=== PATIENT | male | born 1980 | race Caucasian/White ===

== ENCOUNTER → 2019-04-14 12:59 | Outpatient (CLI) | payer OTHER, SELFPAY ==
--- NOTE | 2019-04-14 13:02 | CT_ITS ---
STUDY: CT FACIAL BONES WITHOUT CONTRAST REASON FOR EXAM: Male, 38 years old. SINUSITIS, DEVIATED SEPTUM, POSS SX. RADIATION DOSAGE (If Supplied By Facility): CTDIvol = ( 33.45 ) mGy, DLP = ( 692.74 ) mGycm TECHNIQUE: The patient was scanned in a multi detector CT scanner. Sagittal and coronal images were reconstructed. Individualized dose optimization techniques were used for this CT. COMPARISON: Comparison is made with prior examination dated October 09, 2016. FINDINGS: Normal soft tissue structures. Normal orbital beach and orbital contents. Normal nasal bones and anterior nasal spine. Normal facial bones. There is no demonstrated fracture. Minimal mucosal thickening of the ethmoid sinuses bilaterally. Hypertrophy of the left inferior turbinate. CT/Sinus/Facial Bone IMPRESSION: Minimal mucosal thickening of the ethmoid sinuses bilaterally. Hypertrophy of the left inferior turbinate. Electronically Signed: Milton Deluna, at 13:53 EST , Service support ,
== END ==
PROVIDERS: PCP Family Medicine
DX: J32.0 Chronic maxillary sinusitis (principal)
CPT/HCPCS: 70486

== ENCOUNTER → 2020-02-17 16:39 | Outpatient (CLI) | payer OTHER, SELFPAY ==
[2016-10-09 13:32] VITALS: BMI 34.7
== END ==
PROVIDERS: PCP Family Medicine; Visit Provider Family Medicine
DX: U07.1 COVID-19 (principal)
CPT/HCPCS: 87635; U0003

== ENCOUNTER → 2020-07-05 15:29 | Outpatient (CLI) | payer OTHER, SELFPAY ==
[2016-10-09 13:32] VITALS: BMI 34.7
--- NOTE | 2020-07-05 15:31 | RAD_ITS ---
STUDY: X-RAY - LEFT ANKLE REASON FOR EXAM: Male, 40 years old. Injury. Pain. TECHNIQUE: 3 view(s) of the ankle. COMPARISON: None. FINDINGS: Normal visualized distal tibia and fibula. Normal medial and lateral malleoli. Normal tibiotalar articulation and ankle mortise. Inferior calcaneal spur. The visualized subtalar, talonavicular, calcaneocuboid and tarsal articulations are normal. The soft tissue structures are unremarkable. RAD/Ankle min 3 Views IMPRESSION: Calcaneal spur. No acute abnormality. Electronically Signed: Francisco Murry MD at 12:04 EDT , Service support ,
== END ==
PROVIDERS: PCP Family Medicine; Referring Provider Nurse Practitioner Family; Visit Provider Nurse Practitioner Family
DX: M25.572 Pain in left ankle and joints of left foot (principal)
CPT/HCPCS: 73610

== ENCOUNTER → 2021-12-20 | Outpatient (CLI) | payer OTHER, SELFPAY ==
--- NOTE | 2021-12-20 12:43 | RAD_ITS ---
INDICATION: pain EXAMINATION/TECHNIQUE: X-RAY - RIGHT XR Shoulder Min 2 Views 4 VIEWS COMPARISON: None. FINDINGS: SOFT TISSUES: No soft tissue swelling or gas. No radiopaque foreign body. BONES/JOINTS: No acute fracture or subluxation.. There is normal alignment. Healed RIGHT midclavicular fracture is noted. No acute fracture evident. Preservation of the joint space.. No sclerotic or destructive changes observed. There is normal glenohumeral motion. Visualized rib cage is normal. RAD/Shoulder min 2 Views IMPRESSION: 1. No acute fracture malalignment or dislocation involving the RIGHT glenohumeral joint. 2. Healed RIGHT mid diaphyseal clavicular fracture. Electronically Signed: Malik Harper MD at 17:11 EDT ,
== END | disposition home or self-care (01) ==
PROVIDERS: PCP Family Medicine; Referring Provider Family Medicine; Visit Provider Family Medicine
DX: M25.511 Pain in right shoulder (principal)
CPT/HCPCS: 73030

== ENCOUNTER → 2021-12-31 | Outpatient (CLI) | payer OTHER, SELFPAY ==
--- NOTE | 2021-12-31 07:04 | MRI_ITS ---
STUDY: MRI RIGHT SHOULDER REASON FOR EXAM: Male, 41 years old. SHOULDER PAIN TECHNIQUE: Standardized fat and water weighted pulse sequences were obtained in all 3 orthogonal planes. COMPARISON: X-ray 12/20/2021 FINDINGS: Moderate supraspinatus and infraspinatus tendinosis and peritendinitis as with a 1 x 1 cm full-thickness tear of the distal anterior supraspinatus tendon at the footprint. Superior displacement humeral head consistent with loss of depressor mechanism. Moderate subscapularis tendinosis with a full-thickness tear retracted to the glenohumeral joint. Normal teres minor tendon. Normal supraspinatus muscle. Normal infraspinatus muscle. Normal subscapularis muscle. Normal teres minor muscle. There is a small volume joint effusion of the glenohumeral joint. Normal humeral head and visualized proximal humerus. Normal biceps labral complex. Long head of the biceps tendon is torn and retracted to the bicipital groove. There is labral degeneration with blunting of the jose daniel, but there is no demonstrated discrete labral tear. Normal capsulo- ligamentous complex. Normal rotator interval. There is mild osteoarthritis of the acromioclavicular articulation. There is a Type II morphology (curved), with a neutral orientation. There is no subacromial-subdeltoid bursal fluid. Normal visualized coracohumeral and coracoacromial ligaments. Normal quadrilateral space. Normal axillary space. Normal deltoid muscle. Normal trapezius muscle. MRI/Upper Ext Joint Only(Routine) IMPRESSION: 1. Moderate supraspinatus and infraspinatus tendinosis and peritendinitis as with a 1 x 1 cm full-thickness tear of the distal anterior supraspinatus tendon at the footprint. No muscular atrophy. 2. Tear of the long head of the biceps tendon retracted to the bicipital groove with superior displacement humeral head consistent with loss of the depressor mechanism. 3. Moderate subscapularis tendinosis with a full-thickness tear with retraction to the glenohumeral joint. 4. Blunting of the labrum. Electronically Signed: Malik Fink MD at 15:05 EDT ,
== END | disposition home or self-care (01) ==
PROVIDERS: PCP Family Medicine; Referring Provider Family Medicine; Visit Provider Family Medicine
DX: M25.511 Pain in right shoulder (principal)
CPT/HCPCS: 73221

== ENCOUNTER → 2022-03-09 | Outpatient (CLI) | payer OTHER, SELFPAY ==
[2022-03-09 10:43] LABS: Anion Gap 7 (5-15); BUN 12 mg/dL (7-18); BUN/Creat Ratio 11.8 RATIO (10-20); Chloride 106 mmol/L (98-107); Cholesterol 255 mg/dL (200); Creatinine, Serum 1.02 mg/dL (0.70-1.30); EST Glomerular Filtration Rate 86 mL/min (>60); Est Glom Filt Rate - Afr Amer 104 mL/min (>60); Glucose 104 mg/dL (74-106); High Density Lipoprotein 45 mg/dL; Potassium 4.3 mmol/L (3.5-5.1); Sodium Level 139 mmol/L (136-145); Triglycerides 188 mg/dL; Very Low Density Lipoprotein 38 mg/dL (5-40)
== END | disposition home or self-care (01) ==
LOC: MTLAB 09:33
PROVIDERS: PCP Family Medicine; Referring Provider Nurse Practitioner Family; Visit Provider Nurse Practitioner Family
DX: Z13.1 Encounter for screening for diabetes mellitus (principal); Z13.220 Encounter for screening for lipoid disorders
CPT/HCPCS: 36415; 80048; 80061

== ENCOUNTER → 2022-05-26 | Outpatient (CLI) | payer OTHER, SELFPAY ==
[2022-05-26 12:53] LABS: ALB/GLOB Ratio 1.1 RATIO (0.9-2.4); AST(SGOT) 28 U/L (15-37); Alanine Aminotransfer ALT/SGPT 47 U/L (16-61); Albumin, Serum 3.5 g/dL (3.2-5.0); Alkaline Phosphatase 63 U/L (45-117); Anion Gap 8 (5-15); BUN 15 mg/dL (7-18); BUN/Creat Ratio 13.4 RATIO (10-20); Calcium,Total 8.8 mg/dL (8.5-10.1); Chloride 107 mmol/L (98-107); Cholesterol 170 mg/dL (200); Creatinine, Serum 1.12 mg/dL (0.70-1.30); EST Glomerular Filtration Rate 77 mL/min (>60); Est Glom Filt Rate - Afr Amer 93 mL/min (>60); Globulin 3.2 g/dL (2.2-4.2); Glucose 97 mg/dL (74-106); High Density Lipoprotein 41 mg/dL; Potassium 4.5 mmol/L (3.5-5.1); Protein, Total 6.7 g/dL (6.4-8.2); Sodium Level 141 mmol/L (136-145); Triglycerides 97 mg/dL; Very Low Density Lipoprotein 19 mg/dL (5-40)
== END | disposition home or self-care (01) ==
LOC: MTLAB 10:49
PROVIDERS: PCP Family Medicine; Referring Provider Family Medicine; Visit Provider Family Medicine
DX: E78.00 Pure hypercholesterolemia, unspecified (principal)
CPT/HCPCS: 36415; 80053; 80061

== ENCOUNTER 2022-07-19 16:30 | Outpatient (RCR) | payer OTHER, SELFPAY ==
--- NOTE | 2022-03-01 12:35 | HP.PTEVAL_ITS ---
Patient's Visit Information [address]HA [address] is a 41 year old M referred to Physical Therapy by RUPINDER JOSHUA with a diagnosis of R massive RTC repair. Date of Evaluation: 02/27/22 Physical Therapist: Stephen Banda DPT - Visit Plan Frequency: 2x /Week Duration: 3 Months Plan: Start with PROM do not push through pain. Educate spouse to assist with PROM at home. Progress per protocol. Use massive RTC protocol. - Subjective Pt. is here today for his initial evaluation with diagnosis of S/P R shoulder surgery, massive RTC repair. DOS: 01/30/22. Pt. arrives today in sling as prescribed and reports that he is overall doing well. Pt. is having some trouble sleeping but expected. He has some pain, but no N/T noted. He is to follow up with physician in early mar. 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 He has been doing some passive elbow flexion at home and some wrist mobility as tolerated. Pt. is hopeful to get back to full function and back to all recreational and work activities without limitations. - Pain R shoulder Pain Intensity (Out of 10): 1 Pain Intensity Range: 0, 5 - Objective POSTURE: Pt. has R shoulder in guarded posture with arm at side with elbow flexed. PALPATION: Pt. has well healing incision at anterior shoulder, good healing port holes as well. No signs of infection noted. pt. has general tenderness throughout. Pt. has some scapular and UT muscle soreness as well. NEURO: normal sensation in BUEs noted. ROM: L shoulder and elbow: full motion no issues noted. R shoulder PROM: flexion 90deg, ER at side 5deg. Pt. reports pain at both endranges and not pushed into this date. MMT:: RUE 5/5, LUE not tested - Balance/Special Test Scores Quick DASH Score: 75.0000 - Goals Goal 1:: LTG: Pt. to be I with HEP. Goal Time Frame: 4-6 Weeks Goal 2:: STG: Pt. to sleep throughout the night without increase in symptoms. Goal Time Frame: 2-4 Weeks Goal 3:: LTG: Pt. to have full PROM of R shoulder without increase in symptoms. Goal Time Frame: 2-4 Weeks Goal 4:: LTG: Pt. to have full AROM of R shoulder without increase in symptoms. Goal Time Frame: 6-8 Weeks Goal 5:: LTG: Pt. to have at least 4+/5 strength throughout R shoulder and periscapular musculature. Goal Time Frame: 8-12 Weeks Goal 6:: LTG: Pt. to resume all work and recreational activities without increase in symptoms. Goal Time Frame: 8-12 Weeks - Rehabilitation Potential Physical Therapy Diagnosis: Pt. has signs and symptoms consistent with massive R RTC repair. DOS: 01/30/22. Pt. has marked hypomobility, increased pain, limited function and decreased strength. Pt. would benefit from PT to initially work on ROM and progress to more AROM and eventual strengthening in order to get back to all work and recreational activities without limitations. Rehabilitation Potential: Excellent - Anticipated Interventions Patient/Client Instruction: Educate patient on: Condition, Plan of Care, Risk Factors, Benefits of Fitness Program For the Purpose of:: To improve decision making, To facilitate caregiver know ledge, To improve self management, To prevent re-injury, To improve ability to perform tasks related to life management Therapeutic Exercise to Include: Strength training, Power training, Balance training, Body mechanics, Postural training, Flexibilty training, Passive ROM, Active ROM, Scapular Strength/Stabilization For the Purpose of:: To decrease pain, To decrease swelling/inflammation, To increase ROM, To improve nutrient delivery to tissue, To improve muscle performance and motor function, To improve ability to perform ADL's, To improve health of tissue, To decrease soft tissue restriction, To increase flexibility/ROM Manual Therapy Techniques to Include: Mobilization, Passive ROM, Soft tissue mobilization For the Purpose of:: To decrease pain, To decrease swelling/inflammation, To increase ROM, To improve nutrient delivery to tissue, To increase oxygenation perfusion, To improve muscle performance and motor function, To improve health of tissue, To decrease soft tissue restriction, To increase flexibility/ROM IF ES: Yes Cryotherapy (ice pack, ice massage): Yes Thermo therapy (hot pack): Yes For the Purpose of:: To decrease pain, To increase ROM, To improve nutrient delivery to tissue, To increase oxygenation perfusion, To improve muscle performance and motor function Thank you for the opportunity to evaluate your patient. For Medicare and Medicare HMO plans, please review the plan of care and approve it. It will need to be FAXED BACK to us at [phone] for Medicare purposes. For Medicare only, by signing this I certify the plan of care. Please let me know if there are questions or concerns regarding this plan of care. Physician Signature: Date:
--- NOTE | 2022-05-02 17:16 | HP.PTREVAL ---
RUPINDER JOSHUA, It has been my pleasure to treat RADHA STRE[address] over the last 10 visits for R massive RTC repair. Please see the progress note below for an update on the physical therapy plan of care! Subjective: Pt. reports overall doing well. He reports going back to work, but easing into things. He reports no major issues. Objective/Function: PROM: R shoulder: flexion 150deg, abd 140deg, ER at 90deg 50deg, IR at 90deg 40deg. AAROM: R shoulder: flexion 70deg, abd 70deg, functional ER C1 aberrant motion, functional IR gluteal region. AROM: L shoulder flexion 60deg, abd 60deg, ER c1 aberrant motion, IR gluteal region. Plan Plan: Pt. is still tight but expected. I would like him to work on end range stretching and progression to AAROM as tolerated. Balance/Gait/Functional tests - Balance/Special Test Scores Quick DASH Score: 65.9075 Goals Goal 1:: LTG: Pt. to be I with HEP. Goal Time Frame: 4-6 Weeks Goal Progress: Progressing Goal 2:: STG: Pt. to sleep throughout the night without increase in symptoms. Goal Time Frame: 2-4 Weeks Goal Progress: Goal Met Goal 3:: LTG: Pt. to have full PROM of R shoulder without increase in symptoms. Goal Time Frame: 2-4 Weeks Goal Progress: Progressing Goal 4:: LTG: Pt. to have full AROM of R shoulder without increase in symptoms. Goal Time Frame: 6-8 Weeks Goal Progress: Progressing Goal 5:: LTG: Pt. to have at least 4+/5 strength throughout R shoulder and periscapular musculature. Goal Time Frame: 8-12 Weeks Goal Progress: Progressing Goal 6:: LTG: Pt. to resume all work and recreational activities without increase in symptoms. Goal Time Frame: 8-12 Weeks Goal Progress: Progressing Anticipated Interventions Patient/Client Instruction: Educate patient on: Condition, Plan of Care, Risk Factors, Benefits of Fitness Program For the Purpose of:: To improve decision making, To facilitate caregiver knowledge, To improve self management, To prevent re-injury, To improve ability to perform tasks related to life management Therapeutic Exercise to Include: Strength training, Power training, Balance training, Body mechanics, Postural training, Flexibilty training, Passive ROM, Active ROM, Scapular Strength/Stabilization For the Purpose of:: To decrease pain, To decrease swelling/inflammation, To increase ROM, To improve nutrient delivery to tissue, To improve muscle performance and motor function, To improve ability to perform ADL's, To improve health of tissue, To decrease soft tissue restriction, To increase flexibility/ROM Manual Therapy Techniques to Include: Mobilization, Passive ROM, Soft tissue mobilization For the Purpose of:: To decrease pain, To decrease swelling/inflammation, To increase ROM, To improve nutrient delivery to tissue, To increase oxygenation perfusion, To improve muscle performance and motor function, To improve health of tissue, To decrease soft tissue restriction, To increase flexibility/ROM IF ES: Yes Cryotherapy (ice pack, ice massage): Yes Thermo therapy (hot pack): Yes For the Purpose of:: To decrease pain, To increase ROM, To improve nutrient delivery to tissue, To increase oxygenation perfusion, To improve muscle performance and motor function Please do not hesitate to contact me at [phone] by phone or if you have questions or concerns regarding this new plan of care! Sincerely, SAMMI RajanT
--- NOTE | 2022-06-14 18:38 | HP.PTREVAL_ITS ---
RUPINDER JOSHUA, It has been my pleasure to treat RADHA STRE[address] over the last 18 visits for R massive RTC repair. Please see the progress note below for an update on the physical therapy plan of care! Subjective: Pt. reports overall doing okay. He has been consistent with his exercises at home. Pt. reports no new changes. He is able to most activities below shoulder height, but has increased difficulty with anything over head. No pain at rest. He reports sleeping better. Objective/Function: Pt. is overall doing well. He was pretty stiff with coming in today, but after stretching he was much better. He does have much more trouble with raising active ROM above his head. passively he can get there, but activity is much more difficult. Pt. to add in some deltoid strengthening to progress his active motions. His RTC strength is decent, but delotid strength is more of his issue. I want him to continue with end range stretching to slowly progress as tolerated. Add in strengthening, progressively. Plan Plan: Work towards end range PROM and AROM. Add in deltoid strengthening and scapular strengthening. Balance/Gait/Functional tests - Balance/Special Test Scores Quick DASH Score: 18.1800 Goals Goal 1:: LTG: Pt. to be I with HEP. Goal Time Frame: 4-6 Weeks Goal Progress: Goal Met Goal 2:: STG: Pt. to sleep throughout the night without increase in symptoms. Goal Time Frame: 2-4 Weeks Goal Progress: Goal Met Goal 3:: LTG: Pt. to have full PROM of R shoulder without increase in symptoms. Goal Time Frame: 2-4 Weeks Goal Progress: Progressing Goal 4:: LTG: Pt. to have full AROM of R shoulder without increase in symptoms. Goal Time Frame: 6-8 Weeks Goal Progress: Progressing Goal 5:: LTG: Pt. to have at least 4+/5 strength throughout R shoulder and periscapular musculature. Goal Time Frame: 8-12 Weeks Goal Progress: Progressing Goal 6:: LTG: Pt. to resume all work and recreational activities without increase in symptoms. Goal Time Frame: 8-12 Weeks Goal Progress: Progressing Anticipated Interventions Patient/Client Instruction: Educate patient on: Condition, Plan of Care, Risk Factors, Benefits of Fitness Program For the Purpose of:: To improve decision making, To facilitate caregiver knowledge, To improve self management, To prevent re-injury, To improve ability to perform tasks related to life management Therapeutic Exercise to Include: Strength training, Power training, Balance training, Body mechanics, Postural training, Flexibilty training, Passive ROM, Active ROM, Scapular Strength/Stabilization For the Purpose of:: To decrease pain, To decrease swelling/inflammation, To increase ROM, To improve nutrient delivery to tissue, To improve muscle performance and motor function, To improve ability to perform ADL's, To improve health of tissue, To decrease soft tissue restriction, To increase flexibilit y/ROM Manual Therapy Techniques to Include: Mobilization, Passive ROM, Soft tissue mobilization For the Purpose of:: To decrease pain, To decrease swelling/inflammation, To increase ROM, To improve nutrient delivery to tissue, To increase oxygenation perfusion, To improve muscle performance and motor function, To improve health of tissue, To decrease soft tissue restriction, To increase flexibility/ROM IF ES: Yes Cryotherapy (ice pack, ice massage): Yes Thermo therapy (hot pack): Yes For the Purpose of:: To decrease pain, To increase ROM, To improve nutrient delivery to tissue, To increase oxygenation perfusion, To improve muscle performance and motor function Please do not hesitate to contact me at [phone] by phone or if you have questions or concerns regarding this new plan of care! Sincerely, Stephen Banda DPT
== END 2022-07-19 19:00 | disposition home or self-care (01) ==
LOC: PT 16:30
PROVIDERS: PCP Family Medicine
DX: Z79.890 Hormone replacement therapy (principal)
CPT/HCPCS: 97110; 97140; 97161; 97164

== ENCOUNTER → 2023-08-08 | Outpatient (CLI) | payer OTHER, SELFPAY ==
--- NOTE | 2023-08-08 12:45 | RAD_ITS ---
STUDY: X-RAY - LEFT KNEE REASON FOR EXAM: Male, 43 years old. Left knee injury TECHNIQUE: 4 view(s) of the knee. COMPARISON: None. FINDINGS: Normal visualized distal femur. Normal visualized proximal tibia. 3.5 cm exostosis of the proximal neck of the fibula, otherwise negative fibula. Normal proximal tibiofibular articulation. There is no demonstrated fracture. Normal medial femorotibial compartment. Normal lateral femorotibial compartment. Normal patellofemoral articulation. There is no demonstrated joint effusion. The soft tissue structures are unremarkable. RAD/Knee 4 or More Views IMPRESSION: No definite acute or significant abnormality seen. Electronically Signed: Shawn Godoy MD at 18:11 EDT ,
[2023-08-08 16:00] LABS: Cholesterol 189 mg/dL (200); Creatinine, Serum 1.03 mg/dL (0.70-1.30); EST Glomerular Filtration Rate 84 mL/min (>60); Est Glom Filt Rate - Afr Amer 102 mL/min (>60); Glucose 94 mg/dL (74-106); High Density Lipoprotein 43 mg/dL
== END | disposition home or self-care (01) ==
PROVIDERS: PCP Family Medicine; Referring Provider Family Medicine; Visit Provider Family Medicine
DX: E78.00 Pure hypercholesterolemia, unspecified (principal); M25.562 Pain in left knee
CPT/HCPCS: 36415; 73564; 82465; 82565; 82947; 83718

== ENCOUNTER → 2023-12-10 | Outpatient (CLI) | payer OTHER, SELFPAY ==
[2023-12-10 10:55] LABS: Cholesterol 236 mg/dL (200); Creatinine, Serum 1.01 mg/dL (0.70-1.30); EST Glomerular Filtration Rate 86 mL/min (>60); Est Glom Filt Rate - Afr Amer 104 mL/min (>60); Glucose 118 mg/dL (74-106); High Density Lipoprotein 44 mg/dL
== END | disposition home or self-care (01) ==
PROVIDERS: PCP Family Medicine; Referring Provider Family Medicine; Visit Provider Family Medicine
DX: E78.00 Pure hypercholesterolemia, unspecified (principal)
CPT/HCPCS: 36415; 82465; 82565; 82947; 83718

== ENCOUNTER → 2025-02-27 | Outpatient (CLI) | payer OTHER, SELFPAY ==
[2025-02-27 10:16] LABS: Hematocrit 45.2 % (40-54); Hemoglobin 14.9 g/dL (13.0-16.5); Immature Granulocytes Count 0.040 X10^3/uL (0.0-0.0); Mean Corp Hgb Conc 33.0 g/dL (32-36); Mean Corpuscular Volume 80.4 fL (80-94); Mean Platelet Vol. 9.5 fl (6.2-12.0); NRBC Flagged by Analyzer 0 % (0-5); Platelet Count 251 K/mm3 (150-450); RBC Distribution Width CV 12.9 % (11.6-14.6); RBC Distribution Width SD 37.5 fl (35.1-43.9); Red Blood Count 5.62 M/mm3 (4.6-6.2); White Blood Count 5.6 K/mm3 (4.4-11.0)
[2025-02-27 11:14] LABS: AST(SGOT) 28 U/L (<=37); Alanine Aminotransfer ALT/SGPT 45 U/L (<=46); Albumin, Serum 4.2 g/dL (3.5-5.0); Alkaline Phosphatase 55 U/L (40-129); Anion Gap 12 (5-15); BUN 16 mg/dL (4-19); BUN/Creat Ratio 13.7 RATIO (10-20); Calcium,Total 8.9 mg/dL (7.6-11.0); Carbon Dioxide 21.3 mmol/L (21.0-32.0); Chloride 106 mmol/L (98-108); Globulin 2.4 g/dL (2.2-4.2); Glucose 161 mg/dL (70-99); Potassium 4.3 mmol/L (3.3-5.1)
[2025-02-27 13:57] LABS: Cholesterol 211 mg/dL (<=200); Low Density Lipoprotein Calc. 149 mg/dL; Triglycerides 143 mg/dL; Very Low Density Lipoprotein 29 mg/dL (5-40); cholesterol:hdl ratio screen 5.80
[2025-02-28 08:08] LABS: CRP, High Sensitivity 2.20 mg/L (0.00-3.00)
[2025-02-28 08:08] LABS: V-Zoster IgG (Immunity) Reactive (Non Reactive)
== END | disposition home or self-care (01) ==
LOC: MTLAB 08:40
PROVIDERS: PCP Family Medicine; Referring Provider Family Medicine; Visit Provider Family Medicine
DX: Z01.84 Encounter for antibody response examination (principal); R63.5 Abnormal weight gain
CPT/HCPCS: 36415; 80053; 80061; 83036; 84439; 84443; 85025; 86141; 86787